=== PATIENT | male | born 1975 | race Asian ===

== ENCOUNTER 2019-11-22 11:58 | Inpatient (IN) | payer MEDICAID ==
[~2019-11-22] VITALS: Ht 180.3 cm; Wt 79.4 kg
[2019-11-22 13:24] LABS: BASOPHILS % 0.8 % (0.0-2.0); EOSINOPHILS % 4.8 % (0.0-5.0); HEMATOCRIT. 49.2 % (42.0-52.0); HEMOGLOBIN. 16.9 g/dL (14.0-18.0); LYMPHOCYTES % 34.7 % (20.0-50.0); MEAN CORPUSCULAR HEMOGLOBIN 31.3 pg (28.0-32.0); MEAN CORPUSCULAR VOLUME 91.2 fL (80.0-94.0); MEAN PLATELET VOLUME 11.1 fl (7.4-10.4); MONOCYTES % 9.4 % (2.0-8.0); NEUTROPHILS % 50.3 % (40.0-76.0); PLATELET 174 x1000/uL (130-400); RED BLOOD CELL COUNT 5.39 mill/uL (4.7-6.1); RED CELL DISTRIBUTION WIDTH 13.2 % (11.6-14.6)
[2019-11-22 13:31] LABS: CHLORIDE 99 mEq/L (98-107)
[2019-11-22 13:38] LABS: INR 1.1; PARTIAL THROMBOPLASTIN TIME 31.4 sec (23.4-31.0)
[2019-11-22] MEDS ORDERED: ACETAMINOPHEN 325MG TABLET PO PRN (14:15)
[2019-11-22] MEDS ORDERED: ONDANSETRON HCL 4MG/2ML INJ IV PRN (14:15)
[2019-11-22] MEDS ORDERED: INSULIN REGULAR (HUMULIN R) 300UNITS/3ML IV ONE (15:15)
[2019-11-22] MEDS ORDERED: INSULIN GLARGINE UD 100 UNITS/ML SYR SUBCUT NR (16:00)
[2019-11-22] MEDS: BLOOD SUGAR DIAGNOSTIC STRIP TEST SCH ×2 (17:11→22:08)
[2019-11-22] MEDS ORDERED: DEXTROSE 50% WATER 50ML SYRINGE IV PRN (18:30)
[2019-11-22] MEDS: INSULIN LISPRO 100 UNITS/ML SUBCUT SCH ×2 (18:42→22:08)
[2019-11-22 20:00] VITALS: BP 125/84
[2019-11-22] MEDS ORDERED: ATORVASTATIN CALCIUM 10MG TABLET PO SCH (21:00)
[2019-11-22] MEDS ORDERED: INSULIN GLARGINE UD 100 UNITS/ML SYR SUBCUT SCH (22:00)
[2019-11-22] MEDS: HEPARIN 5000 UNITS/ML VIAL SUBCUT SCH (22:08)
[2019-11-23] VITALS: BP 100/64
[2019-11-23 04:00] VITALS: BP 115/77
[2019-11-23 06:29] LABS: BASOPHILS % 0.6 % (0.0-2.0); EOSINOPHILS % 5.2 % (0.0-5.0); HEMOGLOBIN. 15.9 g/dL (14.0-18.0); LYMPHOCYTES % 49.8 % (20.0-50.0); MEAN CORPUSCULAR VOLUME 89.7 fL (80.0-94.0); MEAN PLATELET VOLUME 10.6 fl (7.4-10.4); MONOCYTES % 8.7 % (2.0-8.0); NEUTROPHILS % 35.7 % (40.0-76.0); PLATELET 167 x1000/uL (130-400); RED BLOOD CELL COUNT 5.13 mill/uL (4.7-6.1); RED CELL DISTRIBUTION WIDTH 13.1 % (11.6-14.6)
[2019-11-23 07:38] LABS: CHLORIDE 104 mEq/L (98-107)
[2019-11-23 07:47] LABS: LDL CHOLESTEROL 76 mg/dL (5-100)
[2019-11-23 07:48] LABS: HDL CHOLESTEROL 41 mg/dL (40-59)
[2019-11-23 08:00] VITALS: BP 123/83
[2019-11-23] MEDS: BLOOD SUGAR DIAGNOSTIC STRIP TEST SCH ×2 (08:00→13:07)
[2019-11-23 08:46] LABS: *AMPHETAMINES SCREEN URINE NEGATIVE (NEGATIVE); *BARBITURATES SCREEN URINE NEGATIVE (NEGATIVE)
[2019-11-23 08:47] LABS: *BENZODIAZEPINES SCREEN URINE NEGATIVE (NEGATIVE); *COCAINE SCREEN URINE PRESUMTIVE POSITIVE (NEGATIVE); CANNABINOID URINE SCREEN NEGATIVE (NEGATIVE); METHADONE URINE SCREEN NEGATIVE (NEGATIVE); OPIATES URINE SCREEN NEGATIVE (NEGATIVE); PHENCYCLIDINE URINE SCREEN NEGATIVE (NEGATIVE)
[2019-11-23] MEDS: HEPARIN 5000 UNITS/ML VIAL SUBCUT SCH (09:28)
[2019-11-23] MEDS: INSULIN LISPRO 100 UNITS/ML SUBCUT SCH ×2 (09:30→13:41)
[2019-11-23 12:00] VITALS: BP 141/94
[2019-11-23] MEDS ORDERED: INSU100I28 SQ (12:15)
[2019-11-23 13:56] VITALS: BP 141/94
== END 2019-11-23 15:40 | disposition home or self-care (01) | DRG 111 ==
LOC: ER 11:58 → EDBEDREQ 13:43 → ENRESERV 19:13 → 7WST 20:08
PROVIDERS: ADMIT Family Medicine Adult Medicine; ATTEND Family Medicine Adult Medicine
DX: R42 Dizziness and giddiness (principal); E11.65 Type 2 diabetes mellitus with hyperglycemia; K75.9 Inflammatory liver disease, unspecified; R07.89 Other chest pain; E87.1 Hypo-osmolality and hyponatremia; F14.10 Cocaine abuse, uncomplicated; Z71.51 Drug abuse counseling and surveillance of drug abuser; Z79.899 Other long term (current) drug therapy
CPT/HCPCS: 36415; 71045; 76705; 80053; 80061; 80305; 82962; 83036; 83735; 83880; 84484; 85025; 93005; 96372; 96374; 99285; J1644; J1815; J2405